=== PATIENT | female | born 1990 | race African-American/Black ===

== ENCOUNTER 2020-06-12 09:01 | Emergency (ER) | payer OTHER ==
[2020-06-12 09:53] LABS: BASOPHIL 0.9 % (0-2); EOSINOPHIL 3.7 % (0-5); HCT 42.2 % (37.0-47.0); LYMPHOCYTE 16.1 % (15-48); MCH 27.8 pg (25.0-31.0); MCHC 33.2 g/dL (32.0-36.0); MCV 83.7 fL (78.0-100.0); MONOCYTE 5.9 % (0-12); MPV 9.7 fL (6.0-9.5); NEUTROPHIL 71.7 % (41-80); NRBC 0; PLT 503 K/uL (150-400); RBC 5.04 M/uL (4.20-5.40); RDW 13.2 % (11.5-14.0); WBC 15.3 K/uL (4.0-10.5)
[2020-06-12 10:16] LABS: ALBUMIN 3.5 g/dL (3.4-5.0); BILIRUBIN - TOTAL 0.2 mg/dL (0.2-1.0); CREATININE 0.54 mg/dL (0.51-0.95); POTASSIUM 3.6 mmol/L (3.5-5.1); TOTAL PROTEIN 7.5 g/dL (6.4-8.2)
[2020-06-12] MEDS ORDERED: ULTRAM50 MG PO (12:03)
[2020-06-12] MEDS ORDERED: MEDROL 4MG DOSEP4 MG PO (12:03)
== END 2020-06-12 12:17 | disposition home or self-care (01) ==
LOC: FER 09:01
PROVIDERS: Emergency Medicine
DX: M94.0 Chondrocostal junction syndrome [Tietze] (principal); J45.909 Unspecified asthma, uncomplicated; F17.210 Nicotine dependence, cigarettes, uncomplicated
CPT/HCPCS: 36415; 71046; 80053; 84443; 84484; 85025; 85379; 93005